=== PATIENT | female | born 1945 | race African-American/Black ===

== ENCOUNTER 2018-10-27 17:25 | Emergency (ER) | payer MEDICARE ==
[2018-10-27 17:48] VITALS: BP 130/89
[2018-10-27] MEDS ORDERED: HYDR-3165 PO (18:25)
[2018-10-27] MEDS ORDERED: MELO7.5T5 PO (18:25)
[2018-10-27] MEDS ORDERED: CEPH-264 PO (18:25)
[2018-10-27] MEDS ORDERED: HYDROcodone/APAP 5/325MG 1 TAB TABLET PO ONE (19:00)
[2018-10-27] MEDS ORDERED: KETOROLAC 60 MG/2 ML VIAL. IM ONE (19:00)
--- NOTE | 2018-10-27 19:19 | ED.ADGEN ---
Past History Past Medical History: High Cholesterol, Hypertension Past Surgical History: Other Alcohol Use: None Drug Use: None Adult General Chief Complaint Chief Complaint foot PAIN HPI HPI 73 years old female presents to the emergency department with the right foot and there is swollen around 3 x 4 cm she wears braces and heR foots been rubbing against the brace Review of Systems Review of Systems Constitutional: Denies fever or chills [] Eyes: Denies change in visual acuity, redness, or eye pain [] HENT: Denies nasal congestion or sore throat [] Respiratory: Denies cough or shortness of breath [] Cardiovascular: No additional information not addressed in HPI [] GI: Denies abdominal pain, nausea, vomiting, bloody stools or diarrhea [] : Denies dysuria or hematuria [] Musculoskeletal: Denies back pain or joint pain [] Integument: Denies rash or skin lesions [] Neurologic: Denies headache, focal weakness or sensory changes [] Endocrine: Denies polyuria or polydipsia [] All other systems were reviewed and found to be within normal limits, except as documented in this note. Current Medications Current Medications Current Medications Medications (Trade) Dose Ordered Sig/Peyton Start Time Stop Time Status Last Admin Dose Admin Acetaminophen/ Hydrocodone Bitart (Lortab 5/325) 2 tab 1X ONCE 10/27/18 19:00 10/27/18 19:02 DC Ketorolac Tromethamine (Toradol Im) 30 mg 1X ONCE 10/27/18 19:00 10/27/18 19:02 DC Allergies Allergies Allergies Coded Allergies Type Severity Reaction Last Updated Verified Penicillins Allergy Intermediate 10/27/18 Yes Sulfa (Sulfonamide Antibiotics) Allergy Intermediate 10/27/18 Yes Physical Exam Physical Exam Constitutional: Well developed, well nourished, no acute distress, non-toxic appearance. [] HENT: Normocephalic, atraumatic, bilateral external ears normal, oropharynx moist, no oral exudates, nose normal. [] Eyes: PERRLA, EOMI, conjunctiva normal, no discharge. [] Neck: Normal range of motion, no tenderness, supple, no stridor. [] Cardiovascular:Heart rate regular rhythm, no murmur [] Lungs & Thorax: Bilateral breath sounds clear to auscultation [] Abdomen: Bowel sounds normal, soft, no tenderness, no masses, no pulsatile masses. [] Skin: Skin on the right foot is tender swollen red Back: No tenderness, no CVA tenderness. [] Extremities: No tenderness, no cyanosis, no clubbing, ROM intact, no edema. [] Neurologic: Alert and oriented X 3, normal motor function, normal sensory function, no focal deficits noted. [] Psychologic: Affect normal, judgement normal, mood normal. [] Current Patient Data Vital Signs Vital Signs Date Time Temp Pulse Resp B/P (MAP) Pulse Ox O2 Delivery O2 Flow Rate FiO2 10/27/18 17:48 Room Air 10/27/18 17:48 98.3 80 20 EKG EKG [] Radiology/Procedures Radiology/Procedures [] Course & Med Decision Making Course & Med Decision Making Pertinent Labs and Imaging studies reviewed. (See chart for details) [] Final Impression Final Impression [] Problems: (1) Cellulitis Qualifiers: Qualified Codes: L03.90 - Cellulitis, unspecified Dragon Disclaimer Dragon Disclaimer This electronic medical record was generated, in whole or in part, using a voice recognition dictation system. YONG COFFMAN MD Oct 27, 2018 19:19
--- NOTE | 2018-10-27 22:06 | RAD ---
Examination: FOOT RIGHT 3V History: Right foot pain at medial great toe proximal joint Comparison/Correlation: None Findings: Three-view right foot x-ray exam was performed. Hallux valgus deformity noted. Soft tissue swelling about the medial aspect of the first metatarsophalangeal joint is evident. Small calcaneal spur is present. No fracture or bony destruction. Tibiotalar joint remodeling is noted. Talocalcaneal joint space narrowing is evident. Impression: Soft tissue swelling about the first metatarsophalangeal joint. No bony destructive finding. Correlate for possibility of gout. 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 Electronically signed by: Jean Pierre Jolley MD (10/27/2018 10:03 PM) [facility]
== END 2018-10-27 19:43 | disposition home or self-care (01) ==
LOC: ER 17:25
DX: L03.115 Cellulitis of right lower limb (principal); E78.00 Pure hypercholesterolemia, unspecified; I10 Essential (primary) hypertension; Z88.0 Allergy status to penicillin; Z88.2 Allergy status to sulfonamides
CPT/HCPCS: 73630; 96372; 99283; J1885